=== PATIENT | female | born 1965 | race Caucasian/White ===

== ENCOUNTER 2020-04-01 09:43 | Emergency (ER) | payer BC ==
[2020-04-01] MEDS ORDERED: HYDROmorphone 0.5 MG/0.5 ML Syringe IVPUSH ONE ×3 (10:10→13:32)
[2020-04-01] MEDS ORDERED: HYDROmorphone 0.5 MG/0.5 ML Syringe IM ONE (10:10)
[2020-04-01] MEDS ORDERED: Ondansetron 4 MG/2 ML SDV IVPUSH ONE (10:10)
--- NOTE | 2020-04-01 10:12 | EDM.PDOC ---
ED HPI GENERAL MEDICAL PROBLEM - General Chief Complaint: Abdominal Pain Stated Complaint: WOKE UP SEVERE PAIN LOWER LEFT BACK INTO FRONT Time Seen by Provider: 04/01/20 10:11 Source of Information: Reports: Patient History Limitations: Reports: No Limitations - History of Present Illness INITIAL COMMENTS - FREE TEXT/NARRATIVE: pt arrived with a history of giar[place]. She developed pain in the left flank this am, This came on suddenly. The pain moves to the left lower abdoman. She has not had a kidney stone in the past. Onset: Today, Sudden Duration: Hour(s): Location: Reports: Abdomen, Back Associated Symptoms: Reports: Weakness Left Lower Back Pain Score (Numeric/FACES): 10 - Related Data Allergies Allergy/AdvReac Type Severity Reaction Status Date / Time heparin Allergy Cannot Verified 04/01/20 10:39 Remember Home Meds: Home Meds NK [No Known Home Meds] 04/01/20 [History] Past Medical History - Infectious Disease History Infectious Disease History: Reports: Chicken Pox - Past Surgical History GI Surgical History: Reports: Other (See Below) Other GI Surgeries/Procedures: tummy tuck many years ago Musculoskeletal Surgical History: Reports: Other (See Below) Other Musculoskeletal Surgeries/Procedures:: atypical chris felix ED ROS GENERAL - Review of Systems Review Of Systems: See Below Constitutional: Reports: No Symptoms HEENT: Reports: No Symptoms Respiratory: Reports: No Symptoms Cardiovascular: Reports: No Symptoms Endocrine: Reports: No Symptoms GI/Abdominal: Reports: Abdominal Pain, Nausea, Other (pt arrived with severe left flank pain and radiation of the pain to the abdoman. ) : Reports: Flank Pain, Hematuria Musculoskeletal: Reports: No Symptoms Skin: Reports: No Symptoms ED EXAM, RENAL/ - Physical Exam Exam: See Below Text/Narrative:: pt arrived with severe left flank pain radiating She has not had kidney stones in the past. Exam Limited By: No Limitations General Appearance: Alert, Anxious, Severe Distress, Thin Ears: Normal TMs Nose: Normal Inspection Throat/Mouth: Normal Inspection Head: Atraumatic Neck: Normal Inspection Respiratory/Chest: No Respiratory Distress Cardiovascular: Regular Rate, Rhythm GI/Abdominal: Tender, Other Rectal (Female) Exam: Deferred Back Exam: Normal Inspection Extremities: Normal Inspection Neurological: Alert, Oriented, Normal Cognition Psychiatric: Anxious, Other (pt was very out of control with pain. ) Course - Vital Signs Last Recorded V/S: Last Vital Signs Temp 35.6 C L 04/01/20 10:02 Pulse 64 04/01/20 10:02 Resp 16 04/01/20 10:02 BP 129/83 04/01/20 10:40 Pulse Ox 100 04/01/20 10:02 - Orders/Labs/Meds Orders: Active Orders 24 hr Category Date Time Status CULTURE URINE [RM] Stat Lab 04/01/20 11:36 Received Sodium Chloride 0.9% [Normal Saline] 1,000 ml Med 04/01/20 10:15 Active IV ASDIRECTED Medication Orders Sodium Chloride (Normal Saline) 1,000 mls @ 999 mls/hr IV ASDIRECTED DAYO Last Admin: 04/01/20 10:35 Dose: 999 mls/hr Documented by: BHAVYA Labs: Laboratory Tests 04/01/20 04/01/20 04/01/20 Range/Units 10:23 10:23 11:10 WBC 9.0 (4.5-11.0) K/uL RBC 4.83 (3.30-5.50) M/uL Hgb 14.4 (12.0-15.0) g/dL Hct 42.2 (36.0-48.0) % MCV 87 (80-98) fL MCH 30 (27-31) pg MCHC 34 (32-36) % Plt Count 273 (150-400) K/uL Neut % (Auto) 77 H (36-66) % Lymph % (Auto) 16 L (24-44) % [place] % (Auto) 6 (2-6) % Eos % (Auto) 1 L (2-4) % Baso % (Auto) 0 (0-1) % Sodium 141 (140-148) mmol/L Potassium 4.0 (3.6-5.2) mmol/L Chloride 105 (100-108) mmol/L Carbon Dioxide 24 (21-32) mmol/L Anion Gap 12.5 (5.0-14.0) mmol/L BUN 16 (7-18) mg/dL Creatinine 0.7 (0.6-1.0) mg/dL Est Cr Clr Drug Dosing 90.88 mL/min Estimated GFR (MDRD) > 60 (>60) Glucose 97 (74-106) mg/dL Calcium 9.0 (8.5-10.1) mg/dL Total Bilirubin 0.7 (0.2-1.0) mg/dL AST 34 (15-37) U/L ALT 35 (12-78) U/L Alkaline Phosphatase 62 (46-116) U/L Total Protein 7.5 (6.4-8.2) g/dL Albumin 3.7 (3.4-5.0) g/dL Globulin 3.8 H (2.3-3.5) g/dL Albumin/Globulin Ratio 1.0 L (1.2-2.2) Urine Color Yellow (YELLOW) Urine Appearance Turbid A (CLEAR) Urine pH 8.5 H (5.0-8.0) Ur Specific [place] 1.015 (1.008-1.030) Urine Protein 100 H (NEGATIVE) mg/dL Urine Glucose (UA) Negative (NEGATIVE) mg/dL Urine Ketones Negative (NEGATIVE) mg/dL Urine Occult Blood Moderate H (NEGATIVE) Urine Nitrite Negative (NEGATIVE) Urine Bilirubin Negative (NEGATIVE) Urine Urobilinogen 0.2 (0.2-1.0) EU/dL Ur Leukocyte Esterase Small H (NEGATIVE) Urine RBC Semi-packed H (0-5) Urine WBC Semi-packed H (0-5) Ur Epithelial Cells Moderate Amorphous Sediment Few Urine Bacteria Many Urine Mucus Few Urine Other Meds: Medications Generic Name Dose Route Start Last Admin Trade Name Tomasa PRN Reason Stop Dose Admin Sodium Chloride 1,000 mls @ 999 mls/hr 04/01/20 10:15 04/01/20 10:35 Normal Saline IV 999 mls/hr ASDIRECTED DAYO Administration Discontinued Medications Generic Name Dose Route Start Last Admin Trade Name Frefrankie PRN Reason Stop Dose Admin Hydromorphone HCl 0.5 mg 04/01/20 10:10 04/01/20 10:34 Dilaudid IVPUSH 04/01/20 10:11 Not Given ONETIME ONE Hydromorphone HCl 0.5 mg 04/01/20 10:24 04/01/20 10:33 Dilaudid IVPUSH 04/01/20 10:25 0.5 mg ONETIME ONE Administration Hydromorphone HCl 0.5 mg 04/01/20 10:10 04/01/20 10:15 Dilaudid IM 04/01/20 10:11 0.5 mg ONETIME ONE Administration Hydromorphone HCl 0.5 mg 04/01/20 13:32 Dilaudid IVPUSH 04/01/20 13:33 ONETIME ONE Ceftriaxone Sodium 1 gm/ 50 mls @ 100 mls/hr 04/01/20 11:43 04/01/20 12:36 Sodium Chloride IV 04/01/20 12:12 100 mls/hr ONETIME ONE Administration Ketorolac Tromethamine 30 mg 04/01/20 11:09 04/01/20 11:14 Toradol IVPUSH 04/01/20 11:10 30 mg ONETIME ONE Administration Ketorolac Tromethamine 15 mg 04/01/20 13:32 Toradol IVPUSH 04/01/20 13:33 ONETIME ONE Ondansetron HCl 4 mg 04/01/20 10:10 04/01/20 10:33 Zofran IVPUSH 04/01/20 10:11 4 mg ONETIME ONE Administration - Re-Assessments/Exams Free Text/Narrative Re-Assessment/Exam: 04/01/20 12:03 urine reveals a packed wbc and packed rbc. There is bacteria present. Her wbc is normal. Her cat scan without contrast showed a obstructing 7 mm stone just outside of the kidney. Departure - Departure Time of Disposition: 13:35 Disposition: DC/Tfer to Acute Hospital 02 Condition: Fair Clinical Impression: Ureteral calculus, left, UTI (urinary tract infection), Hydronephrosis - Discharge Information Referrals: PCP,None [Primary Care Provider] - Forms: ED Department Discharge Care Plan Goals: transfer to [facility]. Pt wishes to come by private car. Sepsis Event Note (ED) - Evaluation Sepsis Screening Result: No Definite Risk - Focused Exam Vital Signs: Vital Signs Temp Pulse Resp BP Pulse Ox 04/01/20 10:40 129/83 04/01/20 10:02 35.6 C L 64 16 135/70 100 - My Orders Last 24 Hours: My Active Orders 04/01/20 10:15 Sodium Chloride 0.9% [Normal Saline] 1,000 ml IV ASDIRECTED 04/01/20 11:36 CULTURE URINE [RM] Stat - Assessment/Plan Last 24 Hours: My Active Orders 04/01/20 10:15 Sodium Chloride 0.9% [Normal Saline] 1,000 ml IV ASDIRECTED 04/01/20 11:36 CULTURE URINE [RM] Stat
[2020-04-01] MEDS ORDERED: Sodium Chloride 0.9% 1,000 ML IV SCH (10:15)
[2020-04-01] MEDS ORDERED: Ketorolac 30 MG/ML SDV IVPUSH ONE ×2 (11:09→13:32)
--- NOTE | 2020-04-01 11:36 | CRLCT ---
INDICATION: Left flank pain TECHNIQUE: CT abdomen and pelvis without contrast. COMPARISON: None available FINDINGS: The visualized portions of the lung bases are clear. There is mild left hydronephrosis with an obstructing stone in the proximal left ureter, measuring 0.7 cm. This is located approximately 3.9 cm from the renal pelvis. Additional nonobstructing stones are seen within the left kidney. Negative for right hydronephrosis or nephrolithiasis. The bladder is partially distended and unremarkable. Phleboliths are seen within pelvis. Evaluation of the abdominal viscera is limited due to lack of IV contrast, however the liver, spleen, pancreas and adrenal glands are unremarkable. The gallbladder is nondistended. There are no dilated loops of small bowel to suggest obstruction.The appendix is normal.There is no intraperitoneal free air or fluid. The visualized osseous structures are unremarkable for patient age. IMPRESSION: 1. Mild left hydronephrosis with an obstructing 7 mm stone in the proximal left ureter. 2. Multiple additional nonobstructing left renal calculi. Dictated by Poornima Soto MD @ 04/01/2020 11:33:35 AM Please note that all CT scans at this facility use dose modulation, iterative reconstruction, and/or weight-based dosing when appropriate to reduce radiation dose to as low as reasonably achievable. Dictated by: Poornima Soto MD @ 04/01/2020 11:34:32 (Electronically Signed)
[2020-04-01] MEDS ORDERED: cefTRIAXone 1 GM in Sodium Chloride 0.9% 50 ML IV ONE (11:43)
== END 2020-04-01 14:10 ==
LOC: JP.ED 09:43
DX: N13.2 Hydronephrosis with renal and ureteral calculous obstruction (principal); N39.0 Urinary tract infection, site not specified; Z88.8 Allergy status to other drugs, medicaments and biological substances
CPT/HCPCS: 36415; 74176; 80053; 81001; 85025; 87086; 87088; 87186; 96361; 96365; 96372; 96375; 96376; 99285; J0696; J1170; J1885; J2405; J7030; J7050; 99284